=== PATIENT | female | born 1990 | race Caucasian/White ===

== ENCOUNTER 2016-05-29 02:09 | Emergency (ER) | payer MEDICARE, OTHER ==
[~2016-05-29] VITALS: Ht 160 cm; Wt 66.0 kg
[~2016-05-29 02:09] MED LIST: BACT800T5 PO; CEPH500T PO; CLIN1CAP5 PO
[2016-05-29 02:15] VITALS: BP 131/96; PULSE 97; RESP 16; TEMP 97.9; O2SAT 97
[2016-05-29] MEDS ORDERED: LIDOCAINE HCL 1% PF 30 ML VIAL INFIL ONE (02:30)
[2016-05-29] MEDS ORDERED: CLINDAMYCIN INJ 900 MG in SODIUM CHLORIDE 0.9% INJ 100 ML IV ONE (02:30)
[2016-05-29] MEDS ORDERED: SODIUM CHLOR 0.9% 1000 ML INJ 1,000 ML IV ONE (02:30)
[2016-05-29] MEDS ORDERED: METR500T10 PO (02:33)
--- NOTE | 2016-05-29 02:36 | PD ---
HPI Chief Complaint: Skin Problem Time Seen by Provider: 02:27 Travel History International Travel<30 days: No Contact w/Intl Traveler<30days: No Traveled to known affect area: No History of Present Illness HPI 25-year-old female presents to the emergency department by private transportation for evaluation of redness and possible abscess to the right medial thigh. Patient is noted symptoms with worsening since yesterday. Patient has noted some spontaneous drainage from the abscess site. Patient's had fever 100F reportedly. Patient states she had similar episode proximal 3 year ago which time she had outpatient I&D of the abscess but didn't require hospitalization. Patient states she is presenting early to try to avoid this. Patient also has history of epilepsy and is not taking any medications for this as she states she has been refractory to multiple medications but does have a service dog for her epilepsy. Patient is not diabetic and does not take immunosuppressive agents by history. Pain is moderate to severe. PFSH Past Medical History Narrative Medical Anxiety depression epilepsy MRSA infection recurrent UTI IUD alcohol use tobacco use substance use nursing notes reviewed Asthma: No Anxiety: Yes Depression: Yes Heart Rhythm Problems: No Cancer: No Cardiovascular Problems: No High Cholesterol: No COPD: No Cerebrovascular Accident: No Diabetes: No Diminished Hearing: No Endocrine: No Gastrointestinal Disorders: No GERD: No Genitourinary: Yes (frequent uti) Headaches: No Hiatal Hernia: No Immune Disorder: No Implanted Vascular Access Dvce: No Insomnia: Yes Musculoskeletal: No Neurologic: Yes (EPILEPSY x 8yrs Dr Dixon) Psychiatric: Yes Reproductive: No Respiratory: No Immunizations Current: Yes Migraines: No Renal Failure: No Seizures: Yes (last sz 3 days ago grand mal) Sleep Apnea: No Ulcer: No LMP: 05/29/16 Menopausal: No : 0 Past Surgical History Body Medical Devices: IUD Ear Surgery: No Endocrine Surgery: No Eye Surgery: No Oral Surgery: No Other Surgery: No (HEMORROID RUBBER BANDING 1 OF 9 09/06/13) Social History Alcohol Use: Yes (SOCIAL) Tobacco Use: Yes (1 PPD) Substance Use: Yes (marijawauna) Allergies-Medications (Allergen,Severity, Reaction): Coded Allergies: *MDRO Multi-Drug Resistant Organism (Verified Adverse Reaction, Unknown, ) MRSA (abdomen-11/2015) Reported Meds & Prescriptions Reported Meds & Active Scripts Active Reported Metronidazole 500 Mg Tab 500 Mg PO BID Review of Systems Except as stated in HPI: all other systems reviewed are Neg Physical Exam Narrative GENERAL: Well-developed well-nourished female in no acute distress no respiratory distress SKIN: Warm and dry. HEAD: Normocephalic. EYES: No scleral icterus. No injection or drainage. NECK: Supple, trachea midline. No JVD or lymphadenopathy. CARDIOVASCULAR: Regular rate and rhythm without murmurs, gallops, or rubs. RESPIRATORY: Breath sounds equal bilaterally. No accessory muscle use. GASTROINTESTINAL: Abdomen soft, non-tender, nondistended. MUSCULOSKELETAL: No cyanosis, or edema. Attention right proximal medial thigh area of induration 12 cm x 12 cm with central induration with pointing and fluctuance 5 cm x 5 cm tender to palpation with associated erythema and increased warmth BACK: Nontender without obvious deformity. No CVA tenderness. Data Data Last Documented VS Vital Signs Date Time Temp Pulse Resp B/P Pulse Ox O2 Delivery O2 Flow Rate FiO2 05/29/16 02:50 18 05/29/16 02:15 97.9 97 131/96 97 Room Air Orders Basic Metabolic Panel (Bmp) (05/29/16 02:27) Complete Blood Count With Diff (05/29/16 02:27) Blood Culture (05/29/16 02:27) Wound Culture And Gram Stain (05/29/16 02:27) Iv Access Insert/Monitor (05/29/16 02:27) Clindamycin Inj (Cleocin Inj) (05/29/16 02:30) Sodium Chlor 0.9% 1000 Ml Inj (Ns 1000 M (05/29/16 02:30) Lidocaine Pf 1% Inj (Xylocaine-Mpf 1% In (05/29/16 02:30) Ketorolac Inj (Toradol Inj) (05/29/16 03:30) Labs Laboratory Tests Test 05/29/16 02:30 White Blood Count 14.0 TH/MM3 Red Blood Count 4.25 MIL/MM3 Hemoglobin 13.2 GM/DL Hematocrit 38.0 % Mean Corpuscular Volume 89.3 FL Mean Corpuscular Hemoglobin 31.1 PG Mean Corpuscular Hemoglobin 34.8 % Concent Red Cell Distribution Width 12.4 % Platelet Count 276 TH/MM3 Mean Platelet Volume 7.9 FL Neutrophils (%) (Auto) 69.4 % Lymphocytes (%) (Auto) 22.8 % Monocytes (%) (Auto) 5.1 % Eosinophils (%) (Auto) 0.9 % Basophils (%) (Auto) 1.8 % Neutrophils # (Auto) 9.7 TH/MM3 Lymphocytes # (Auto) 3.2 TH/MM3 Monocytes # (Auto) 0.7 TH/MM3 Eosinophils # (Auto) 0.1 TH/MM3 Basophils # (Auto) 0.3 TH/MM3 CBC Comment DIFF FINAL Differential Comment Sodium Level 142 MEQ/L Potassium Level 3.7 MEQ/L Chloride Level 110 MEQ/L Carbon Dioxide Level 22.4 MEQ/L Anion Gap 10 MEQ/L Blood Urea Nitrogen 19 MG/DL Creatinine 0.83 MG/DL Estimat Glomerular Filtration 82 ML/MIN Rate Random Glucose 102 MG/DL Calcium Level 8.3 MG/DL [facility] Medical Decision Making Medical Screen Exam Complete: Yes Emergency Medical Condition: Yes Medical Record Reviewed: Yes Interpretation(s) Laboratory Tests Test 05/29/16 02:30 White Blood Count 14.0 TH/MM3 Red Blood Count 4.25 MIL/MM3 Hemoglobin 13.2 GM/DL Hematocrit 38.0 % Mean Corpuscular Volume 89.3 FL Mean Corpuscular Hemoglobin 31.1 PG Mean Corpuscular Hemoglobin 34.8 % Concent Red Cell Distribution Width 12.4 % Platelet Count 276 TH/MM3 Mean Platelet Volume 7.9 FL Neutrophils (%) (Auto) 69.4 % Lymphocytes (%) (Auto) 22.8 % Monocytes (%) (Auto) 5.1 % Eosinophils (%) (Auto) 0.9 % Basophils (%) (Auto) 1.8 % Neutrophils # (Auto) 9.7 TH/MM3 Lymphocytes # (Auto) 3.2 TH/MM3 Monocytes # (Auto) 0.7 TH/MM3 Eosinophils # (Auto) 0.1 TH/MM3 Basophils # (Auto) 0.3 TH/MM3 CBC Comment DIFF FINAL Differential Comment Sodium Level 142 MEQ/L Potassium Level 3.7 MEQ/L Chloride Level 110 MEQ/L Carbon Dioxide Level 22.4 MEQ/L Anion Gap 10 MEQ/L Blood Urea Nitrogen 19 MG/DL Creatinine 0.83 MG/DL Estimat Glomerular Filtration 82 ML/MIN Rate Random Glucose 102 MG/DL Calcium Level 8.3 MG/DL Differential Diagnosis cellulitis, abscess, sirs, sepsis Narrative Course IV access obtained specimens collected and sent for resulting; I&D discussed with patient with which she is agreeable after extensive discussion of procedure risk and benefit patient gives verbal consent to proceed Patient administered clindamycin 900 mg IV Patient administered Toradol 30 mg IV Incision and drainage only revealed a small amount of bloody with scant pus on I &D site was irrigated and specimen was collected but minimal purulent material collection sterile dressing was applied patient tolerated well will recommend recheck in 24 hours unless patient is doing extremely well or to return before 24 hours if any fever should develop. White count is 14,000 but no left shift by automated differential. Mild dehydration by metabolic panel. Procedures Procedure Narrative After the risks and benefits were discussed the following procedure was performed: INCISION AND DRAINAGE OF ABSCESS: The area was prepped and was sterilely draped. A subcutaneous wheal of 1 % Xylocaine with a total number 2 mL was used to anesthetize the area. The area was properly anesthetized. A number 11 scalpel was used to make a 1.5 -cm incision across the area of the abscess. Cultures were obtained. The abscess was drained of minimal seropurulent material an irrigated with normal saline. Quarter inch iodoform packing was placed in the wound. Sterile dressing applied. Patient advised to have packing removed in two days. Diagnosis Primary Impression: Cellulitis of groin Additional Impressions: Abscess Encounter for drainage of abscess Referrals: Primary Care Physician 2 days Patient Instructions: General Instructions Additional Instructions: Return to the emergency department in 2 days for packing removal; return before if fever pain redness swelling or any worsening or change in condition Increase fluid hydration Monitor temperature every 4 hours with thermometer and administer acetaminophen/ Tylenol every 4 hours for fever 100.4F or greater and/or ibuprofen/Advil/ Motrin 600 mg as often as every 6 hours as needed for fever 100.4F or greater or for pain associated with inflammation May apply moist heat intermittently for first 12-24 hours Elevated extremity Follow-up with primary care provider Med/Other Pt SpecificInfo: Prescription(s) given Scripts Hydrocodone-Acetaminophen (Lortab)5-325 Mg Tab1 Tab PO Q6H PRN (PAIN) #12 TAB Ref 0 Prov:Elena Farmer MD 05/29/16 Clindamycin 150 Mg [id number] Mg PO Q6H 7 Days Ref 0 Prov:Elena Farmer MD 05/29/16 Disposition: 01 DISCHARGE HOME Condition: Stable Elena Farmer MD May 29, 2016 02:35
[2016-05-29 02:51] LABS: AUTOMATED NEUTROPHIL # 9.7 TH/MM3 (1.8-7.7); BASOPHIL # 0.3 TH/MM3 (0-0.2); BASOPHIL % 1.8 % (0.0-2.0); EOSINOPHIL # 0.1 TH/MM3 (0-0.4); EOSINOPHIL % 0.9 % (0.0-4.0); LYMPH % 22.8 % (9.0-44.0); LYMPHOCYTE # 3.2 TH/MM3 (1.0-4.8); MEAN CELL VOLUME 89.3 FL (80.0-100.0); MEAN CORPUSCULAR HEMOGLOBIN 31.1 PG (27.0-34.0); MEAN CORPUSCULAR HGB CONC 34.8 % (32.0-36.0); MONO % 5.1 % (0.0-8.0); NEUT % 69.4 % (16.0-70.0); PLATELET COUNT 276 TH/MM3 (150-450); RED BLOOD COUNT 4.25 MIL/MM3 (4.00-5.30); RED CELL DISTRIBUTION WIDTH 12.4 % (11.6-17.2)
[2016-05-29 02:54] LABS: HEMO FLAGS DIFF FINAL
[2016-05-29 03:02] LABS: POTASSIUM 3.7 MEQ/L (3.5-5.1)
[2016-05-29 03:05] LABS: BICARBONATE 22.4 MEQ/L (21.0-32.0)
[2016-05-29] MEDS ORDERED: KETOROLAC TROMETHAMINE 30 MG/ML (IVP) VIAL IV PUSH ONE (03:30)
[2016-05-29 03:40] VITALS: BP 124/83; PULSE 87; RESP 18; TEMP 98.6; O2SAT 97
[2016-05-29] MEDS ORDERED: HYDR-3533 PO (03:43)
[2016-05-29] MEDS ORDERED: CLIN1CAP5 PO (03:43)
[2016-05-29 04:43] VITALS: BP 118/66; PULSE 89; RESP 18; O2SAT 99
== END 2016-05-29 04:55 | disposition home or self-care (01) ==
LOC: PHED 02:09
DX: L03.314 Cellulitis of groin (principal); L02.415 Cutaneous abscess of right lower limb; B95.62 Methicillin resistant Staphylococcus aureus infection as the cause of diseases classified elsewhere; F17.210 Nicotine dependence, cigarettes, uncomplicated; F12.90 Cannabis use, unspecified, uncomplicated
CPT/HCPCS: 10061; 80048; 85025; 86403; 87040; 87070; 87186; 96361; 96365; 96375; 99285; J1885; J7030

== ENCOUNTER 2016-05-30 23:28 | Inpatient (IN) | payer MEDICARE, OTHER ==
[~2016-05-30] VITALS: Ht 160 cm; Wt 67.9 kg
[~2016-05-30 23:28] MED LIST changes: -BACT800T5 PO; -CEPH500T PO; +HYDR-3533 PO; +METR500T10 PO
[2016-05-30 23:37] VITALS: BP 146/95; PULSE 95; RESP 16; TEMP 99.2; O2SAT 100
[2016-05-31] VITALS (12 sets, daily range): BP systolic 116–146; BP diastolic 65–95; PULSE 56–98; RESP 13–31; TEMP 97.8–99.2; O2SAT 97–100
[2016-05-31] MEDS ORDERED: LIDOCAINE 1%/EPINEPHrine 1:100,000 SOLN 20 ML VIAL INFIL ONE (01:00)
[2016-05-31] MEDS ORDERED: LIDOCAINE 1%/EPINEPHrine 1:100,000 SOLN 30 ML VIAL INFIL ONE (01:15)
--- NOTE | 2016-05-31 01:40 | PD ---
HPI Chief Complaint: Skin Problem Time Seen by Provider: 00:52 Travel History International Travel<30 days: No Contact w/Intl Traveler<30days: No Traveled to known affect area: No History of Present Illness HPI The patient is a 25-year-old female that was here 2 days ago for an infection in her right groin. It was incised and drained and some pus apparently was recovered. Culture of this area revealed coagulase positive staph but no sensitivity has been done yet. The area of redness/cellulitis has expanded approximately 4 times in area now and is involving most of the anterior-medial aspect of the thigh. She has taken her temperature at home and it has been running 99. She has been taking ibuprofen regularly for the pain. She does have a history of seizures unresponsive to any medication. She gets about 1 seizure weekly. Her last tetanus shot was 3 years ago. PFSH Past Medical History Asthma: No Anxiety: Yes Depression: Yes Heart Rhythm Problems: No Cancer: No Cardiovascular Problems: No High Cholesterol: No COPD: No Cerebrovascular Accident: No Diabetes: No Diminished Hearing: No Endocrine: No Gastrointestinal Disorders: No GERD: No Genitourinary: Yes (FREQUENT UTI) Headaches: No Hiatal Hernia: No Immune Disorder: No Implanted Vascular Access Dvce: No Insomnia: Yes Musculoskeletal: No Neurologic: Yes (EPILEPSY ) Psychiatric: Yes Reproductive: No Respiratory: No Immunizations Current: Yes Migraines: No Renal Failure: No Seizures: Yes (EPILEPSY) Sleep Apnea: No Ulcer: No Tetanus Vaccination: < 5 Years Influenza Vaccination: No ?: Not LMP: NOW Menopausal: No : 0 Past Surgical History Body Medical Devices: IUD Ear Surgery: No Endocrine Surgery: No Eye Surgery: No Oral Surgery: No Social History Alcohol Use: Yes (SOCIAL) Tobacco Use: Yes (1 PPD) Substance Use: Yes (marijawauna) Allergies-Medications (Allergen,Severity, Reaction): Coded Allergies: *MDRO Multi-Drug Resistant Organism (Verified Adverse Reaction, Unknown, ) MRSA (abdomen-11/2015) Reported Meds & Prescriptions Reported Meds & Active Scripts Active Lortab (Hydrocodone-Acetaminophen) 5-325 Mg Tab 1 Tab PO Q6H PRN Clindamycin (Clindamycin HCl) 150 Mg Cap 300 Mg PO Q6H 7 Days Review of Systems Except as stated in HPI: all other systems reviewed are Neg Physical Exam Narrative GENERAL: The patient is alert, oriented 3 in moderate apparent distress with her right thigh pain in the area of cellulitis. Her vital signs show temperature 99.2, pulse 95 and blood pressure 146/95. SKIN: Warm and dry. There is an area of cellulitis 30 cm x 20 cm. There is an indurated area about 2 x 3 cm located inferiorly to the inguinal ligament and centered about 3 cm below the inguinal ligament. HEAD: Atraumatic. Normocephalic. EYES: Pupils equal and round. No scleral icterus. No injection or drainage. ENT: No nasal bleeding or discharge. Mucous membranes pink and moist. NECK: Trachea midline. No JVD. CARDIOVASCULAR: Regular rate and rhythm. No murmur appreciated. RESPIRATORY: No accessory muscle use. Clear to auscultation. Breath sounds equal bilaterally. GASTROINTESTINAL: Abdomen soft, non-tender, nondistended. Hepatic and splenic margins not palpable. MUSCULOSKELETAL: No obvious deformities. No clubbing. No cyanosis. No edema. NEUROLOGICAL: Awake and alert. No obvious cranial nerve deficits. Motor grossly within normal limits. Normal speech. PSYCHIATRIC: Appropriate mood and affect; insight and judgment normal. Data Data Last Documented VS Vital Signs Date Time Temp Pulse Resp B/P Pulse Ox O2 Delivery O2 Flow Rate FiO2 05/31/16 01:45 77 18 127/70 100 Room Air 05/31/16 00:39 99.2 Orders Wound Care (05/31/16 00:57) Lidocai-Epi 1%-1:100,000 Inj (Xylocaine- (05/31/16 01:15) Complete Blood Count With Diff (05/31/16 01:51) Comprehensive Metabolic Panel (05/31/16 01:51) Vancomycin Consult Pharmacy (Vancomycin (05/31/16 02:00) Admit To Inpatient (05/31/16 ) Vital Signs (Adult) Q4H (05/31/16 01:53) Activity Oob Ad Ann Marie (05/31/16 01:53) Diet Regular Basic (05/31/16 Breakfast) Sodium Chlor 0.9% 1000 Ml Inj (Ns 1000 M (05/31/16 01:53) Sodium Chloride 0.9% Flush (Ns Flush) (05/31/16 02:00) Sodium Chloride 0.9% Flush (Ns Flush) (05/31/16 09:00) Ondansetron Inj (Zofran Inj) (05/31/16 02:00) Bisacodyl Supp (Dulcolax Supp) (05/31/16 02:00) Comprehensive Metabolic Panel (06/01/16 06:00) Complete Blood Count With Diff (06/01/16 06:00) Scd Bilateral/Knee High ISMA.BID (05/31/16 01:53) [place] Bilateral/Knee High ISMA.QSHIFT (05/31/16 01:53) Acetaminophen (Tylenol) (05/31/16 02:00) Acetamin-Hydrocod 325-5 Mg ([place] 5-325 (05/31/16 02:00) Morphine Inj (Morphine Inj) (05/31/16 02:00) Inpatient Certification (05/31/16 ) Vancomycin Inj (Vancomycin Inj) (05/31/16 02:00) [facility] Medical Decision Making Medical Screen Exam Complete: Yes Emergency Medical Condition: Yes Medical Record Reviewed: Yes Differential Diagnosis Cellulitis with failed outpatient therapy, abscess not properly draining, resistant organism with cellulitis Narrative Course The patient has cellulitis with failed outpatient therapy. Plan: Patient be admitted for IV vancomycin. Physician Communication Physician Communication I discussed the patient with Dr. Buitrago. The patient will be admitted to her here at [place]. Diagnosis Primary Impression: Cellulitis of groin Additional Impression: Failure of outpatient treatment Admitting Information Admitting Physician Requests: Carlos Henson MD May 31, 2016 01:40
[2016-05-31] MEDS ORDERED: ONDANSETRON HCL 4 MG/2 ML VIAL IVP PRN (02:00)
[2016-05-31] MEDS ORDERED: BISACODYL 10 MG SUPP PR PRN (02:00)
[2016-05-31] MEDS ORDERED: ACETAMINOPHEN 325 MG TAB PO PRN (02:00)
[2016-05-31] MEDS ORDERED: VANCOMYCIN INJ 1,250 MG in SODIUM CHLOR 0.9% 250 ML INJ 250 ML IV ONE (02:00)
[2016-05-31] MEDS ORDERED: SODIUM CHLORIDE 0.9% FLUSH 5 ML FLUSH FLUSH PRN (02:00)
[2016-05-31] MEDS ORDERED: Vancomycin Consult Pharmacy 1 EA OTHER SCH (02:00)
[2016-05-31] MEDS ORDERED: MORPHINE SULFATE 4 MG/ML INJ IV PRN (02:00)
[2016-05-31 02:09] LABS: BASOPHIL # 0.2 TH/MM3 (0-0.2); BASOPHIL % 2.3 % (0.0-2.0); EOSINOPHIL # 0.2 TH/MM3 (0-0.4); EOSINOPHIL % 1.6 % (0.0-4.0); HEMATOCRIT 38.6 % (35.0-46.0); LYMPH % 36.6 % (9.0-44.0); LYMPHOCYTE # 3.9 TH/MM3 (1.0-4.8); MEAN CELL VOLUME 88.1 FL (80.0-100.0); MEAN CORPUSCULAR HEMOGLOBIN 30.8 PG (27.0-34.0); MONO % 2.6 % (0.0-8.0); NEUT % 56.9 % (16.0-70.0); PLATELET COUNT 255 TH/MM3 (150-450); RED BLOOD COUNT 4.39 MIL/MM3 (4.00-5.30); RED CELL DISTRIBUTION WIDTH 11.6 % (11.6-17.2); WHITE BLOOD COUNT 10.6 TH/MM3 (4.0-11.0)
[2016-05-31 02:12] LABS: HEMO FLAGS DIFF FINAL
[2016-05-31 02:15] LABS: CHLORIDE 107 MEQ/L (98-107); POTASSIUM 3.5 MEQ/L (3.5-5.1); SODIUM (NA) 141 MEQ/L (136-145)
[2016-05-31] MEDS ORDERED: MORPHINE SULFATE 8 MG/ML INJ IV PUSH ONE (02:15)
[2016-05-31 02:19] LABS: ANION GAP 8 MEQ/L (5-15); BICARBONATE 26.3 MEQ/L (21.0-32.0); BLOOD UREA NITROGEN 11 MG/DL (7-18)
[2016-05-31] MEDS: SODIUM CHLOR 0.9% 1000 ML INJ 1,000 ML IV SCH ×3 (02:19→23:29)
[2016-05-31 02:22] LABS: ALT (GPT) 16 U/L (10-53); AST (GOT) 14 U/L (15-37); GLOMERULAR FILTRATION RATE 86 ML/MIN (>89)
[2016-05-31 02:24] LABS: TOTAL BILIRUBIN ADULT 0.3 MG/DL (0.2-1.0)
[2016-05-31 02:25] LABS: ALKALINE PHOSPHATASE 57 U/L (45-117)
[2016-05-31] MEDS: NICOTINE 21 MG/24 HR PATCH TD SCH ×2 (03:10→11:36)
[2016-05-31] MEDS: ACETAMINOPHEN/HYDROcodone 325 MG/5 MG TAB PO PRN ×5 (04:20→23:28)
--- NOTE | 2016-05-31 08:08 | HHI.HP ---
[facility] Primary Care Physician Ysa Ku MD Admission Diagnosis cellulitis right thigh, failed outpatient therapy Diagnoses: (1) Cellulitis of groin Chief Complaint: Right groin redness Travel History International Travel<30 Days: No Contact w/Intl Traveler <30 Da: No Traveled to Known Affected Are: No History of Present Illness 25-year-old female with known history of seizure disorder who presented to hospital because of increased redness around drained abscess. Patient came to emergency department on 05/29/16 in which she was evaluated by Dr. Farmer. At that time patient had a abscess which incision and drainage was performed with a small amount of bloody and scant pus. Culture was sent off and now has MRSA. Patient was discharged home with Lortab and clindamycin. 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 Started taking antibiotics, however she didn't think that it was improving so she came back to the hospital the next day. Patient was evaluated by Dr. Rangel. Also tried to repeat incision and drainage and was unsuccessful in expressing any exudates. According to the ER physician the patient failed outpatient management with oral antibiotics and recommended patient be admitted for IV antibiotics. The patient indicates that she has had fever at home. However, she indicates is only 99 and she was on Motrin. She states that the erythema was worsening. Has not had any copious drainage. According to nursing staff, patient had an episode last night with possible seizure. Patient does have history seizures in which she has had workups done at [facility]. She states that despite all workups they indicate that she is resistant to medications. Nursing staff indicates that after the patient's family had left. The nurse heard a thump in the room and went in and found the patient lying on the floor. According documentation at approximate 439 this morning the patient had assessment performed and she was alert and orientated answer questions appropriately. However simply after that is when she was found on the floor. Both the bed rails were up. Patient was found on the floor without any loss of bowel or bladder control. The patient states that she has post ictal, however 441 this morning after supposed seizure patient was alert and orientated and answering questions appropriately. No seizure documentation in the nursing notes. The patient gives additional information that she does not want to take any further seizure medications at this time as they all have given her side effects and none of them have been effective. She states that she was offered a temporal lobectomy for her seizures at [facility] at does not want to proceed with that at this time. She does not drive because of the seizures. She states typically she has a seizure once every 5-6 days. Review of Systems Constitutional: COMPLAINS OF: Fever, DENIES: Diaphoretic episodes, Fatigue, Weight gain, Weight loss, Chills, Dizziness, Change in appetite, Night Sweats Eyes: DENIES: Blurred vision, Diplopia, Eye inflammation, Eye pain, Vision loss , Double Vision Ears, nose, mouth, throat: DENIES: Hearing loss, Nasal discharge, Throat pain, Ear Pain, Running Nose, Sinus Pain Respiratory: DENIES: Apneas, Cough, Snoring, Wheezing, Hemoptysis, Sputum production, Shortness of breath Cardiovascular: DENIES: Chest pain, Palpitations, Syncope, Dyspnea on Exertion , Lower Extremity Edema, Orthopnea Gastrointestinal: DENIES: Abdominal pain, Black stools, Bloody stools, Constipation, Diarrhea, Nausea, Vomiting, Difficulty Swallowing, Anorexia Integumentary: COMPLAINS OF: Abnormal pigmentation Neurologic: COMPLAINS OF: Seizures, DENIES: Abnormal gait, Headache, Localized weakness, Paresthesias, Speech Problems, Tremor, Poor Balance Psychiatric: DENIES: Anxiety, Confusion, Mood changes, Depression Past Family Social History Past Medical History Epilepsy, supposedly resistant to medications Past Surgical History No previous surgeries Reported Medications Reported Meds & Active Scripts Active Lortab (Hydrocodone-Acetaminophen) 5-325 Mg Tab 1 Tab PO Q6H PRN Clindamycin (Clindamycin HCl) 150 Mg Cap 300 Mg PO Q6H 7 Days Allergies: Coded Allergies: *MDRO Multi-Drug Resistant Organism (Verified Adverse Reaction, Unknown, ) MRSA (abdomen-11/2015) Family History Reviewed and unremarkable Social History Patient does smoke one pack of cigarettes a day since she was 10 years old. She does smoke marijuana at least every other day. She drinks alcohol weekly approximately a 6 pack. She denies any other illicit drugs Physical Exam Vital Signs Vital Signs Date Time Temp Pulse Resp B/P Pulse Ox O2 Delivery O2 Flow Rate FiO2 05/31/16 07:15 65 16 05/31/16 05:37 60 18 120/67 98 Room Air 05/31/16 05:37 60 18 05/31/16 05:18 18 05/31/16 04:41 68 18 05/31/16 04:16 98 18 143/80 97 Room Air 05/31/16 02:44 78 18 05/31/16 02:44 78 18 136/76 98 Room Air 05/31/16 02:35 18 05/31/16 01:45 77 18 127/70 100 Room Air 05/31/16 00:44 95 18 05/31/16 00:39 99.2 95 18 146/95 100 05/30/16 23:37 99.2 95 16 146/95 100 Physical Exam GENERAL: Well-developed, well-nourished, in no acute distress. alert and orientated HEENT: Head is normocephalic without any lesions or masses noted. Facial features are symmetric. Eyes: Pupils equal round reactive to light. Extraocular muscles are intact. Conjunctivae were clear. Oropharyngeal: Pharynx without any erythema edema. Tongue is midline without deviation. Buccal mucosa is moist without any masses or lesions NECK: Supple without any masses. Trachea midline no deviation. No JVD, no bruits are appreciated CARDIAC: Regular rhythm, regular rate. S1/S2 are heard. No murmurs gallops or rubs. LUNGS: Clear to auscultation bilaterally. No wheeze, rhonchi or rales. No use of accessory muscles on inspiration or expiration. ABDOMEN: Soft, nontender. Nondistended. Bowel sounds heard in all 4 quadrants. No organomegaly or masses. Negative rebound, negative guarding EXTREMITIES: No edema, pulses are equal bilaterally. No cyanosis or clubbing NEUROLOGY: Mood and affect appear appropriate. Cranial nerves II through XII grossly intact. Muscle strength 5/5 in upper and lower extremities bilaterally. Deep tendon reflexes are 2+ in upper and lower extremities bilaterally. RIGHT GROIN: Patient does have a 1.5 cm incision noted without any significant exudative drainage. There is granulation noted beneath the incision measuring approximately 2.5 cm. There is mild erythema noted around the area, however it is in linear manning as if tape had been placed and possible reaction to that. There is redness on her inner thigh going down to her knee, however that is where a cold pack had been placed through the night. I could not appreciate any inguinal without adenopathy Laboratory Laboratory Tests Test 05/31/16 01:45 White Blood Count 10.6 Red Blood Count 4.39 Hemoglobin 13.5 Hematocrit 38.6 Mean Corpuscular Volume 88.1 Mean Corpuscular Hemoglobin 30.8 Mean Corpuscular Hemoglobin 35.0 Concent Red Cell Distribution Width 11.6 Platelet Count 255 Mean Platelet Volume 8.3 Neutrophils (%) (Auto) 56.9 Lymphocytes (%) (Auto) 36.6 Monocytes (%) (Auto) 2.6 Eosinophils (%) (Auto) 1.6 Basophils (%) (Auto) 2.3 Neutrophils # (Auto) 6.0 Lymphocytes # (Auto) 3.9 Monocytes # (Auto) 0.3 Eosinophils # (Auto) 0.2 Basophils # (Auto) 0.2 CBC Comment DIFF FINAL Differential Comment Sodium Level 141 Potassium Level 3.5 Chloride Level 107 Carbon Dioxide Level 26.3 Anion Gap 8 Blood Urea Nitrogen 11 Creatinine 0.80 Estimat Glomerular Filtration 86 Rate Random Glucose 90 Calcium Level 8.8 Total Bilirubin 0.3 Aspartate Amino Transf 14 (AST/SGOT) Alanine Aminotransferase 16 (ALT/SGPT) Alkaline Phosphatase 57 Total Protein 7.4 Albumin 3.7 Result Diagram: 05/31/1614405/31/16144 Assessment and Plan Assessment and Plan Right groin abscess with cellulitis Culture growing MRSA - and is sensitive to clindamycin Patient on vancomycin at this time Continue monitor and if continues to improve and resume clindamycin Obtain ultrasound to evaluate for any fluid collection - on clinical exam the abscess does not appear amenable to drainage at this time and is very small. Epilepsy -Possible seizure this morning. This was unwitnessed by nursing staff, no loss of bowel or bladder control, no tongue lesion. Patient indicates that she is resistant to medications per [facility] and [facility]. Further she does not want to take any seizure medications because of side effects and because of ineffectiveness. She is been offered temporal lobectomy at [facility] but is not ready to pursue that at this time. -Will use Ativan 1 mg IV as needed for seizures. Patient does not drive and was encouraged to continue abstaining from driving. DVT prevention Sequential compression devices Written by Edward Rangel PA-C, acting as scribe for Dr. Osman on 05/31/16 at Time. The documentation accurately reflects the work and decisions performed face-to- face by Dr. Osman on 05/31/16 at [Time]. Physician Certification 2 Midnight Certification Type: Admission for Inpatient Services Order for Inpatient Services The services are ordered in accordance with Medicare regulations or non- Medicare payer requirements, as applicable. In the case of services not specified as inpatient-only, they are appropriately provided as inpatient services in accordance with the 2-midnight benchmark. Estimated LOS (days): 2 days is the estimated time the patient will need to remain in the hospital, assuming treatment plan goals are met and no additional complications. Post-Hospital Plan: Not yet determined Edward Rangel May 31, 2016 08:08 Xochitl Osman MD May 31, 2016 15:14
--- NOTE | 2016-05-31 10:54 | RADHPO ---
EXAM DATE/TIME: 05/31/2016 14:48 [place] COMPARISON: CT ABDOMEN & PELVIS W CONTRAST, October 08, 2013, 12:27. INDICATIONS : Abscess. MEDICAL HISTORY : Methicillin-resistant Staphylococcus aureus. Epilepsy. SURGICAL HISTORY : Hemorrhoid banding. ENCOUNTER: Initial ACUITY: 2 days PAIN SCORE: 5/10 LOCATION: Right leg. AREA EVALUATED: Right groin. FINDINGS: Right inguinal region was evaluated with grayscale and Doppler imaging. There is edema throughout the subcutaneous tissues and the tissues are hyperemic. There is a questionable more focal hypoechoic ar ea estimated to measure approximately 1 cm in size that may extend to the skin surface. CONCLUSION: Edematous and hyperemic tissue in the area of clinical interest in the right inguinal region. There i s a subtle more localized hypoechoic area in the subcutaneous tissues measuring approximately 1 cm th at may represent a developing complex fluid collection or developing abscess. Ciro Pozo MD on May 31, 2016 at 10:50 Board Certified Radiologist. This report was verified electronically.
[2016-05-31] MEDS: SODIUM CHLORIDE 0.9% FLUSH 5 ML FLUSH FLUSH SCH ×2 (11:36→19:40)
[2016-05-31] MEDS: VANCOMYCIN 1,000 MG/NS 250 ML IV SCH ×2 (13:33)
[2016-05-31] MEDS ORDERED: VANCOMYCIN INJ 1,000 MG in SODIUM CHLOR 0.9% 250 ML INJ 250 ML IV SCH (14:00)
[2016-05-31] MEDS ORDERED: LORazepam 2 MG/ML VIAL IV PUSH PRN (15:15)
[2016-06-01] VITALS: BP 130/69; PULSE 74; RESP 24; TEMP 98.7; O2SAT 99
[2016-06-01] MEDS: VANCOMYCIN 1,000 MG/NS 250 ML IV SCH ×2 (02:27)
[2016-06-01 05:52] LABS: BASOPHIL # 0.1 TH/MM3 (0-0.2); BASOPHIL % 0.9 % (0.0-2.0); EOSINOPHIL # 0.2 TH/MM3 (0-0.4); EOSINOPHIL % 2.3 % (0.0-4.0); HEMATOCRIT 35.8 % (35.0-46.0); HEMO FLAGS DIFF FINAL; LYMPH % 50.6 % (9.0-44.0); LYMPHOCYTE # 3.4 TH/MM3 (1.0-4.8); MEAN CELL VOLUME 88.8 FL (80.0-100.0); MEAN CORPUSCULAR HEMOGLOBIN 30.6 PG (27.0-34.0); MEAN CORPUSCULAR HGB CONC 34.5 % (32.0-36.0); MONO % 3.8 % (0.0-8.0); NEUT % 42.4 % (16.0-70.0); PLATELET COUNT 271 TH/MM3 (150-450); RED BLOOD COUNT 4.03 MIL/MM3 (4.00-5.30)
[2016-06-01 05:59] VITALS: BP 104/62; PULSE 54; RESP 15; O2SAT 99
[2016-06-01 06:01] LABS: CHLORIDE 112 MEQ/L (98-107); POTASSIUM 3.8 MEQ/L (3.5-5.1); SODIUM (NA) 144 MEQ/L (136-145)
[2016-06-01 06:31] LABS: ALKALINE PHOSPHATASE 43 U/L (45-117); ALT (GPT) 14 U/L (10-53); ANION GAP 5 MEQ/L (5-15); AST (GOT) 8 U/L (15-37); BICARBONATE 26.6 MEQ/L (21.0-32.0); BLOOD UREA NITROGEN 10 MG/DL (7-18); GLOMERULAR FILTRATION RATE 107 ML/MIN (>89); TOTAL BILIRUBIN ADULT 0.4 MG/DL (0.2-1.0)
[2016-06-01 08:00] VITALS: BP 129/79; PULSE 58; RESP 16; TEMP 97.8; O2SAT 98
[2016-06-01 09:00] VITALS: PULSE 79
[2016-06-01] MEDS: NICOTINE 21 MG/24 HR PATCH TD SCH (10:01)
[2016-06-01] MEDS: SODIUM CHLOR 0.9% 1000 ML INJ 1,000 ML IV SCH (10:01)
[2016-06-01] MEDS: SODIUM CHLORIDE 0.9% FLUSH 5 ML FLUSH FLUSH SCH (10:02)
[2016-06-01] MEDS: ACETAMINOPHEN/HYDROcodone 325 MG/5 MG TAB PO PRN (10:16)
[2016-06-01 10:58] VITALS: PULSE 79
[2016-06-01 12:00] VITALS: BP 127/77; PULSE 58; RESP 16; TEMP 97; O2SAT 97
--- NOTE | 2016-06-01 13:00 | HHI.PR ---
Subjective Remarks Patient seen and examined today. Patient denies any new complaints. Patient is still concerned about a lump in her thigh. Patient continues to be afebrile. Objective Vitals Vital Signs Date Time Temp Pulse Resp B/P Pulse Ox O2 Delivery O2 Flow Rate FiO2 06/01/16 08:00 97.8 58 16 129/79 98 06/01/16 05:59 54 15 104/62 99 06/01/16 00:00 98.7 74 24 130/69 99 05/31/16 20:00 98.9 70 13 116/67 98 05/31/16 20:00 70 05/31/16 16:00 98.2 72 28 119/65 97 I/O 05/31/16 05/31/16 05/31/16 06/01/16 06/01/16 06/01/16 07:00 15:00 23:00 07:00 15:00 23:00 Intake Total 250 ml 1511 ml 840 ml 1003 ml Balance 250 ml 1511 ml 840 ml 1003 ml Intake Oral 720 ml 240 ml 240 ml IV Total 250 ml 791 ml 600 ml 763 ml # Voids 2 2 3 # Bowel Movements 0 0 0 Result Diagram: 06/01/16 0500 06/01/16 0500 Objective Remarks GENERAL: Well-developed, well-nourished, in no acute distress. alert and orientated HEENT: Head is normocephalic without any lesions or masses noted. Facial features are symmetric. Eyes: Extraocular muscles are intact. Conjunctivae were clear. NECK: Supple without any masses. Trachea midline no deviation. No JVD, CARDIAC: Regular rhythm, regular rate. S1/S2 are heard. No murmurs gallops or rubs. LUNGS: Clear to auscultation bilaterally. No wheeze, rhonchi or rales. No use of accessory muscles on inspiration or expiration. ABDOMEN: Soft, nontender. Nondistended. Bowel sounds heard in all 4 quadrants. No organomegaly or masses. Negative rebound, negative guarding EXTREMITIES: No edema, pulses are equal bilaterally. No cyanosis or clubbing NEUROLOGY: Mood and affect appear appropriate. Cranial nerves II through XII grossly intact. Moving all extremities. Speech is clear Urinary Catheter: No Vascular Central Line Catheter: No A/P Assessment and Plan Right groin abscess with cellulitis, improved Culture growing MRSA - and is sensitive to clindamycin Patient on vancomycin at this time Continue monitor and if continues to improve and resume clindamycin Ultrasound shows hyperemic tissue in the area of clinical interest with localized hypoechoic area of proximally 1 cm may represent complex fluid collection or developing abscess. Epilepsy -Possible seizure this morning. This was unwitnessed by nursing staff, no loss of bowel or bladder control, no tongue lesion. Patient indicates that she is resistant to medications per [facility] and [facility]. Further she does not want to take any seizure medications because of side effects and because of ineffectiveness. She is been offered temporal lobectomy at [facility] but is not ready to pursue that at this time. -Will use Ativan 1 mg IV as needed for seizures. Patient does not drive and was encouraged to continue abstaining from driving. DVT prevention Sequential compression devices Written by Edward Rangel PA-C, acting as scribe for Dr. Osman on 06/01/16 at 1305. The documentation accurately reflects the work and decisions performed face-to- face by Dr. Osman on 06/01/16 at 1305. Discharge Planning Discharge home in stable condition Activity: Ad janak. Diet: Regular diet Medications per medication reconciliation Follow-up primary medical doctor in one week Edward Rangel Jun 01, 2016 13:00
--- NOTE | 2016-06-01 13:01 | HHI.DCPOC ---
Discharge Care Plan Diagnosis: (1) Cellulitis of groin Goals to Promote Your Health * To prevent worsening of your condition and complications * To maintain your health at the optimal level Directions to Meet Your Goals Take your medications as prescribed Follow your dietary instruction Follow activity as directed Keep your appointments as scheduled Take your immunizations and boosters as scheduled If your symptoms worsen call your PCP, if no PCP go to Urgent Care Center or Emergency Room Smoking is Dangerous to Your Health. Avoid second hand smoke Call the 24-hour hour crisis hotline for domestic abuse at Edward Rangel Jun 01, 2016 13:01
[2016-06-01] MEDS ORDERED: PHARMACY ORDERED LAB XX ONE (13:45)
== END 2016-06-01 15:00 | disposition home or self-care (01) | DRG 603 ==
LOC: PHED 23:28 → PHEDA 05-31 02:13 → PHEDH 05-31 06:06 → PHICU 05-31 08:50 → PH3A 06-01 07:36
PROVIDERS: ADMIT Family Medicine; ATTEND Family Medicine
PROC: 0Y953ZZ Drainage of Right Inguinal Region, Percutaneous Approach (ICD-10-PCS; principal; 2016-05-29)
DX: L02.214 Cutaneous abscess of groin (principal); L03.115 Cellulitis of right lower limb; F32.9 Major depressive disorder, single episode, unspecified; L03.314 Cellulitis of groin; G40.909 Epilepsy, unspecified, not intractable, without status epilepticus; F41.9 Anxiety disorder, unspecified; G47.00 Insomnia, unspecified; F17.210 Nicotine dependence, cigarettes, uncomplicated; B95.62 Methicillin resistant Staphylococcus aureus infection as the cause of diseases classified elsewhere; F12.90 Cannabis use, unspecified, uncomplicated
CPT/HCPCS: 10061; 76882; 80048; 80053; 85025; 86403; 87040; 87070; 87186; 96361; 96365; 96375; 99284; J1885; J2270; J2405; J3370; J7030; J7050

== ENCOUNTER 2016-12-21 12:59 | Emergency (ER) | payer MEDICARE, OTHER ==
[~2016-12-21] VITALS: Ht 160 cm; Wt 61.9 kg
[~2016-12-21 12:59] MED LIST changes: -METR500T10 PO
[2016-12-21 13:27] VITALS: BP 139/76; PULSE 78; RESP 18; TEMP 99.3; O2SAT 99
[2016-12-21] MEDS ORDERED: DOXY100C PO (14:02)
[2016-12-21] MEDS ORDERED: BACT800T5 PO (14:02)
--- NOTE | 2016-12-21 14:06 | PD ---
HPI Chief Complaint: Bite or Sting Time Seen by Provider: 13:58 Travel History International Travel<30 days: No Contact w/Intl Traveler<30days: No Traveled to known affect area: No History of Present Illness HPI This is a 26-year-old female who presents today with redness and pain to her right forearm. The patient status started as a bug bite 5 days ago. She reports that it has gotten bigger and more red. She states that earlier it had some cold drainage from the area. There is no reported fevers, chills. She has had MRSA in the past. She reports her tetanus shot is up-to-date. There are no other complaints. PFSH Past Medical History Asthma: No Autoimmune Disease: No Anxiety: Yes Depression: Yes Heart Rhythm Problems: No Cancer: No Cardiovascular Problems: No High Cholesterol: No COPD: No Cerebrovascular Accident: No Diabetes: No Diminished Hearing: No Endocrine: No Gastrointestinal Disorders: No GERD: No Genitourinary: No Headaches: Yes Hiatal Hernia: No Immune Disorder: No Implanted Vascular Access Dvce: No Insomnia: Yes Musculoskeletal: No Neurologic: Yes Psychiatric: No Reproductive: No Respiratory: No Immunizations Current: Yes Migraines: No Renal Failure: No Seizures: Yes (SEIZURES SINCE 2007 - EPILEPSY) Sleep Apnea: No Thyroid Disease: No Ulcer: No ?: Not Menopausal: No : 0 Past Surgical History Body Medical Devices: IUD Ear Surgery: No Endocrine Surgery: No Eye Surgery: No Oral Surgery: No Social History Alcohol Use: Yes (SOCIAL) Tobacco Use: Yes (1 PPD) Substance Use: Yes (WEED) Allergies-Medications (Allergen,Severity, Reaction): Coded Allergies: *MDRO Multi-Drug Resistant Organism (Verified Adverse Reaction, Unknown, ) MRSA (abdomen-11/2015) & (leg-05/29/16) Reported Meds & Prescriptions Reported Meds & Active Scripts Active Doxycycline Hyclate 100 Mg Cap 100 Mg PO BID Bactrim DS (Sulfamethoxazole-Trimethoprim) 800-160 Mg Tab 1 Tab PO BID Review of Systems Except as stated in HPI: all other systems reviewed are Neg General / Constitutional: No: Fever, Chills Gastrointestinal: No: Nausea, Vomiting Skin: Positive Lesions (right forearm), Positive Other (right time-sized circular redness with central drainage to her right forearm.) Physical Exam Narrative GENERAL: Well-nourished, well-developed patient. SKIN: Focused skin assessment warm/dry. HEAD: Normocephalic/atraumatic EYES: No scleral icterus. No injection or drainage. NECK: Supple, trachea midline. No JVD or lymphadenopathy. MUSCULOSKELETAL: No cyanosis, or edema. On examination patient's right forearm , in the anatomical position there time shaped red circular area with a central crusting area on her medial forearm. There is no evidence of lymphangitis there is no evidence of fluctuant abscess noted. NEUROLOGICAL: Awake and alert. Cranial nerves II through XII intact. Motor grossly within normal limits. Five out of 5 muscle strength in all muscle groups. Normal speech. Data Data Last Documented VS Vital Signs Date Time Temp Pulse Resp B/P Pulse Ox O2 Delivery O2 Flow Rate FiO2 12/21/16 13:27 99.3 78 18 139/76 99 MDM Medical Decision Making Medical Screen Exam Complete: Yes Emergency Medical Condition: Yes Differential Diagnosis MRSA versus cellulitis versus allergic reaction Narrative Course 26-year-old female presents with right forearm redness and previous drainage. Patient has what appears to be an infected bug bite. She has had previous MRSA. She'll be treated with Bactrim and doxycycline. She'll be instructed to return of he develops any worsening redness swelling or increased size. Diagnosis Primary Impression: right forearm infected bug bite Additional Instructions: Return of worsening redness, fevers chills, increased size or pain. Scripts Doxycycline Hyclate 100 Mg [id number] Mg PO BID #20 CAP Ref 0 Prov:Eris Poe MD 12/21/16 Sulfamethoxazole-Trimethoprim (Bactrim DS)800-160 Mg Tab1 Tab PO BID #20 TAB Ref 0 Prov:Eris Poe MD 12/21/16 Disposition: 01 DISCHARGE HOME Condition: Stable Eris Poe MD Dec 21, 2016 14:06
== END 2016-12-21 14:13 | disposition home or self-care (01) ==
LOC: PHEFT 12:59
DX: S50.861A Insect bite (nonvenomous) of right forearm, initial encounter (principal); L08.9 Local infection of the skin and subcutaneous tissue, unspecified; W57.XXXA Bitten or stung by nonvenomous insect and other nonvenomous arthropods, initial encounter
CPT/HCPCS: 99284

== ENCOUNTER 2017-11-27 13:40 | Inpatient (IN) ==
[2017-11-27] MEDS ORDERED: Sod Chloride 0.9% Inj 1,000 ML IV.SIG ONE ×2 (14:20→15:31)
[2017-11-27 15:07] LABS: Baso % (Auto) 0.1 % (0.0-2.0); Hematocrit 39.6 % (35.0-46.0); Hemoglobin 13.3 gm/dL (11.6-15.3); Lymph # (Auto) 0.6 th/mm3 (1.0-4.8); Lymph % (Auto) 4.2 % (9.0-44.0); Mean Corpuscular HGB Conc 33.6 % (32.0-36.0); Mean Corpuscular Hemoglobin 31.1 pg (27.0-34.0); Mean Corpuscular Volume 92.5 fL (80.0-100.0); Mean Platelet Volume 8.7 fL (7.0-11.0); Mono # (Auto) 0.4 th/mm3 (0.0-0.9); Mono % (Auto) 3.3 % (0.0-8.0); Neut # (Auto) 12.4 th/mm3 (1.8-7.7); Neut % (Auto) 92.4 % (16.0-70.0); Platelet Count 239 th/mm3 (150-450); Red Blood Count 4.28 mil/mm3 (4.00-5.30); Red Cell Distribution Width 12.9 % (11.6-17.2); White Blood Count 13.5 th/mm3 (4.0-11.0)
[2017-11-27 15:21] LABS: Calcium 9.4 mg/dL (8.5-10.1); Carbon Dioxide 18.8 meq/L (21.0-32.0); Magnesium 2.6 mg/dL (1.5-2.5); Potassium 3.9 meq/L (3.5-5.1)
--- NOTE | 2017-11-27 15:35 | ED ---
HPI General Chief Complaint: Seizure Stated Complaint: Medical Time Seen by Provider: 11/27/17 14:07 Source: patient Mode of arrival: ambulatory Limitations: other (postictal state) History of Present Illness HPI Narrative: 27-year-old female, with history of intractable seizure disorder and grand mal seizures 10 years, with 4 seizures back to back today; her last seizure was 30 minutes ago. Her mom is with her at the bedside. The patient is in a postictal state and seems somewhat confused although she is alert and oriented 4. She does appear drowsy and her pupils are dilated. She is slow to answer some of the questions. Her mom is a good historian and is helping with the HPI. The patient is also answering questions. Patient took was weaned off Briviact, by her neurologist Dr. Dixon, and last took 50 mg dose on . Her baseline is having one grand mal seizure every 7-9 days. Her neurologist has tried multiple medications including Tegretol, Keppra, gabapentin, Lamictal, Dilantin, etc. with continued seizures. No known aggravating or relieving factors. Patient denies chest pain, shortness of breath, abdominal pain, nausea, vomiting, headache at this time. She has not taken any medications or try any treatments prior to arrival to alleviate her symptoms. Mom is taking her home to give her a dose of the Brivriact and Ativan , but she continued to have seizures so brought her to the ER. No known allergies. Neurologist Dr. Dixon. Primary care provider is Dr. Ku. History of grand mal seizures. Denies other significant past medical history. Has no other medical complaints. No other modifying factors or associated signs and symptoms. Related Data Home Medications Medication Instructions Recorded Confirmed brivaracetam [Briviact] 50 mg PO DAILY 11/27/17 11/27/17 Allergies Allergy/AdvReac Type Severity Reaction Status Date / Time *MDRO Multi-Drug Resistant AdvReac Unknown unknown Uncoded 11/27/17 13:56 Organism Review of Systems ROS Unobtainable All other systems reviewed negative except as stated in HPI [facility] Medical History Medical History Seizure (Acute) Social History Social History Substance History: No History of Abuse Second Hand Smoke Exposure: No Smoking Status: Former smoker Tobacco Type: Cigarettes How Often Do You Have a Drink Containing Alcohol: Monthly or less Recent Travel in [facility] within the Last 8 Weeks: No Recent Out of Country Travel within the Last 8 Weeks: No Immunization History Tetanus Immunization: <5 Years Hx Influenza Vaccine This Season: No Exam Narrative Exam Narrative: GENERAL: Well-nourished, well-developed female patient , in no acute distress SKIN: Warm and dry. HEAD: Atraumatic. Normocephalic. No facial droop noted. Tongue midline. Shoulder shrug equal. Finger to nose test normal. EYES: Pupils equal and round at 5 mm with brisk reaction. No scleral icterus. No injection or drainage. PERRLA. EOMI. ENT: Mucosa pink and moist. Airway patent. NECK: Trachea midline. No lymphadenopathy. CARDIOVASCULAR: Tachycardic rate and rhythm. No murmur appreciated. RESPIRATORY: No accessory muscle use. Breath sounds clear and equal bilaterally. GASTROINTESTINAL: Abdomen soft, non-tender, nondistended. Positive bowel sounds. No hepato-splenomegaly, or palpable masses. No guarding. MUSCULOSKELETAL: No obvious deformities. No clubbing. No cyanosis. No edema. NEUROLOGICAL: Awake and alert; appears lethargic. Slow to answer some questions. Oriented 4. No obvious cranial nerve deficits. Motor grossly within normal limits. Normal speech. No ataxia. No mid-line drift. No upper or lower extremity drift. Trim Machine Operator strength equal bilaterally. Sensory intact and equal bilaterally. Moves all extremities. Active plantar and dorsiflexion and strength equal bilaterally. 5/5 strength to all extremities. PSYCHIATRIC: Appropriate mood and affect; insight and judgment normal. Course Initial Documented Vital Signs Temperature 98.3 F 11/27/17 13:50 Pulse Rate 134 H 11/27/17 13:50 Respiratory Rate 22 11/27/17 13:50 Blood Pressure 147/80 H 11/27/17 13:50 Pulse Oximetry 96 11/27/17 13:50 Last Documented Vital Signs Temperature 97.8 F 11/28/17 04:00 Pulse Rate 62 11/28/17 04:00 Respiratory Rate 16 11/28/17 04:00 Blood Pressure 111/61 11/28/17 04:00 Pulse Oximetry 98 11/28/17 04:00 Medical Decision Making BISI Attestation BISI supervised visit: Yes Attestation: I was present with the advanced practitioner during the management of this patient. I discussed the case with the advanced practitioner and agree with the findings and plan as documented in their note except as noted below. 27yF presenting with seizures. The patient's mother states that she has a history of epilepsy, normally has generalized tonic-clonic seizures every 7-9 days, but has had her home dose of brivaracetam weaned down over the past few weeks due to side effects at full dose. The patient had 3 witnessed tonic- clonic seizures today which were witnessed by her friend, unclear how long they lasted for. Patient is unsure if she returned to baseline mental status between seizures. Complains of "aching pain all over my body". Well-appearing, looks fatigued NCAT, pupils 4 mm and reactive bilaterally, no apparent head or facial trauma Borderline tachy, regular Lungs clear to auscultation bilaterally Abdomen soft, non-tender in all quadrants No lower extremity edema Superficial abrasion to left anterior lower leg GCS 15, answers questions slowly but appropriately, appears mildly confused. Motor strength 5/5, no pronator drift or dysmetria, no nystagmus. Appropriate affect A/P: 27yF presenting with multiple breakthrough seizures IV fluids Labs, including lytes Ativan x 1 dose now, continue to monitor Patient's father bringing in medication from home (not on formulary here) Will discuss with neurology regarding resuming AEDs Patient found to have ELIZABETH (creat 1.46 up from 0.66 on previous visit), will add CK to rule out rhabdomyolysis. Patient will need to stay for IV hydration, recheck BUN/ creat, resume AEDs, further workup, and seizure precautions. MDM Narrative Medical decision making narrative: 27-year-old female with history of intractable seizure disorder and grand mal seizures presents with 4 seizures back to back. She was weaned off of her current seizure medication, Briviact, and last took the dose on . Her mom is at the bedside with her. Discussed the patient with Dr. Ordonez and she evaluated the patient and plan of care discussed. Orders entered. Patient on cardiopulmonary monitor. 1535: Call placed to Dr. Dixon, neurologist; neurologist not available on weekends; office hours are Wednesday through Wednesday and it instructed to leave a message and a call will be made back on the next business day. 1539: Call placed to on-call neurologist, Dr. Hughes. 1553: Complaining of headache and pain starting all over. Percocet 2.5 mg ordered. 1620: I spoke with Dr. Hughes, neurologist and patient will be admitted. Requested orders entered. Call placed to [facility] for admission. 1723: I spoke with Dr. Shipley; report given for patient admission. Differential Diagnosis Differential Diagnosis: Grand mal seizure, epilepsy, uncontrolled seizures, medical clearance Lab Data Result diagrams: 11/27/17 14:30 11/27/17 14:30 Lab Results 11/27/17 11/27/17 11/27/17 Range/Units 14:30 14:30 14:30 WBC 13.5 H (4.0-11.0) th/mm3 RBC 4.28 (4.00-5.30) mil/mm3 Hgb 13.3 (11.6-15.3) gm/dL Hct 39.6 (35.0-46.0) % MCV 92.5 (80.0-100.0) fL MCH 31.1 (27.0-34.0) pg MCHC 33.6 (32.0-36.0) % RDW 12.9 (11.6-17.2) % Plt Count 239 (150-450) th/mm3 MPV 8.7 (7.0-11.0) fL Neut % (Auto) 92.4 H (16.0-70.0) % Lymph % (Auto) 4.2 L (9.0-44.0) % Dukes % (Auto) 3.3 (0.0-8.0) % Eos % (Auto) 0.0 (0.0-4.0) % Baso % (Auto) 0.1 (0.0-2.0) % Neut # (Auto) 12.4 H (1.8-7.7) th/mm3 Lymph # (Auto) 0.6 L (1.0-4.8) th/mm3 Dukes # (Auto) 0.4 (0.0-0.9) th/mm3 Eos # (Auto) 0.0 (0.0-0.4) th/mm3 Baso # (Auto) 0.0 (0.0-0.2) th/mm3 WBC Differential . Differential Comment Auto diff final Sodium 142 (136-145) meq/L Potassium 3.9 (3.5-5.1) meq/L Chloride 110 H (98-107) meq/L Carbon Dioxide 18.8 L (21.0-32.0) meq/L Anion Gap 13 (5-15) meq/L BUN 18 (7-18) mg/dL Creatinine 1.46 H (0.50-1.00) mg/dL Estimated GFR 42 L (>89) mL/min Random Glucose 122 H (74-106) mg/dL Calcium 9.4 (8.5-10.1) mg/dL Magnesium 2.6 H (1.5-2.5) mg/dL Total Creatine Kinase 127 (26-192) U/L CK-MB (CK-2) 0.5 (0.5-3.6) ng/mL Imaging Data Radiologist's impression: Head MRI 11/27/17 16:30 CONCLUSION: 1. Negative noncontrast brain MRI. Discharge Plan Discharge Disposition Patient Disposition: 30 Still Patient Discharge Condition Condition: Stable Discharge Details Diagnosis: Intractable seizure disorder, Grand mal seizure Physicians Team ED Provider: Lotus Ordonez ED Midlevel Provider: Justina Estrada Primary Care Provider: Yas Ku Attending Provider: Marina Harris Other Providers: Ashwin Hughes Status ED Status: Left Department Discharge Information Discharge Date/Time: 11/27/17 18:51
[2017-11-27 16:16] LABS: Creatine Kinase 127 U/L (26-192)
[2017-11-27] MEDS ORDERED: Valproate Inj 500 MG in Sodium Chlor 0.9% Inj 100 ML IV.SIG SCH (16:30)
[2017-11-27] MEDS ORDERED: Lacosamide Inj 200 MG in Sodium Chlor 0.9% Inj 100 ML IV.SIG ONE (16:30)
[2017-11-27 16:31] LABS: Creatine Kinase MB 0.5 ng/mL (0.5-3.6)
[2017-11-27] MEDS ORDERED: Acetaminophen 325 MG Tablet PO PRN (17:35)
[2017-11-27] MEDS ORDERED: levETIRAcetam 1000mg/100mL Inj 100 ML IV.SIG ONE (17:35)
--- NOTE | 2017-11-27 18:20 | MR ---
EXAM DATE: 11/27/2017 6:10 PM EDT AGE/SEX: 27 years / Female INDICATIONS: Seizures. CLINICAL DATA: This is the patient's initial encounter. Patient reports that signs and symptoms have been present for 1 day and indicates a pain score of 0/10. MEDICAL/SURGICAL HISTORY: None. None. COMPARISON: No prior exams available for comparison. TECHNIQUE: Multiplanar, multisequence examination of the brain was performed without contrast. FINDINGS: The ventricular system is within normal limits. There is normal hodge-white differentiation. There is no acute hemorrhage, mass or evidence of infarction. There is no restricted diffusion present on the echoplanar weighted images. The posterior fossa and brainstem appear unremarkable. No extra-axial flu id collections are identified. The orbits and visualized portions of the sinuses are unremarkable. CONCLUSION: 1. Negative noncontrast brain MRI. Electronically signed by: Ad Tomlinson MD 11/27/2017 6:19 PM EDT
[2017-11-27] MEDS ORDERED: Naloxone Inj 0.4 MG/ML Vial IV.PUSH PRN (18:42)
--- NOTE | 2017-11-27 18:42 | P.HPIM ---
History of Present Illness Primary Care Physician: Yas Ku MD Chief Complaint: Seizures History of Present Illness: 27-year-old white female with a 10 year history of seizure disorder presents to the emergency room after having 4 consecutive grand mal seizures earlier this morning. Apparently patient has been on multiple anticonvulsants which she did not tolerate well and still was having breakthrough seizures. Her current neurologist Dr. Dixon has prescribed Briviact 100mg Po but patient was not tolerating the dosing and was titrating down to 50 mg during this week. At this time, patient complained of a frontal headache. She has not had any focalized weakness or numbness and slowly is more responsive in the emergency room. A lot of the history was gathered by speaking with her mother at bedside. Apparently, patient has been on multiple anticonvulsants which has not prevented breakthrough seizures. This includes Tegretol, Keppra, gabapentin , Lamictal, Topamax, Lyrica, Depakote. She has Ativan at home for breakthrough seizure and did take this after her multiple seizures earlier this morning. The emergency room physician had difficult time getting in touch with Dr. Dixon and a consult will be placed to the neurologist on service Dr. Dimas. - Diagnosis (1) Intractable seizure disorder Inpatient Certification: I certify that the inpatient services were ordered in accordance with Medicare regulations governing the order. This includes certification that hospital inpatient services are reasonable and necessary and in the case of services not specified as inpatient-only under 42 CFR 419.22(n), that they are appropriately provided as inpatient services in accordance to with the 2-midnight benchmark under 43 CFR 412.3(e) Estimated Total Length of Stay (Days): 2 Plans for Post Hospital Care: Home Review of Systems All other systems reviewed negative except as stated in HPI [facility] - History History Provided By: Patient - Medical / Surgical Hx Neg / Unobtainable Surgical History: No Previous Surgery - Medical History Medical History: Medical History (Last Reviewed 11/27/17 @ 18:39 by Rebecca Shipley MD) Seizure - Tobacco History Second Hand Smoke Exposure: No Tobacco Use In Past 30 Days: Yes Smoking Status: Former smoker Tobacco Type: Cigarettes - Alcohol History How Often Do You Have a Drink Containing Alcohol: Monthly or less - Substance Use History Substance History: No History of Abuse - Travel History Recent Travel in the [place] Within the Last 8 Weeks: No Recent Travel Out of the Country Within the Last 8 Weeks: No - Immunization History Tetanus Immunization: <5 Years Hx Influenza Vaccine This Season: No Medications and Allergies Active Medications: Active Medications Acetaminophen (Tylenol) 650 mg PO Q4H PRN PRN Reason: PAIN SCALE 1 TO 10 Valproate Sodium 500 mg/ (Sodium Chloride) 105 mls @ 105 mls/hr IV.SIG Q8HR GRACE Last Admin: 11/27/17 17:39 Dose: 105 mls/hr Levetiracetam (Keppra) 500 mg PO BID GRACE Lorazepam (Ativan Inj) 2 mg IV.PUSH Q10M PRN PRN Reason: SEE LABEL COMMENTS Sodium Chloride (Ns Flush) 2 ml IV.FLUSH PRN PRN PRN Reason: FLUSH AFTER USING IV ACCESS Last Admin: 11/27/17 14:47 Dose: 2 ml Allergies Allergy/AdvReac Type Severity Reaction Status Date / Time *MDRO Multi-Drug Resistant AdvReac Unknown unknown Uncoded 11/27/17 13:56 Organism Home Medications Medication Instructions Recorded Confirmed Type brivaracetam [Briviact] 50 mg PO DAILY 11/27/17 11/27/17 History Exam Vital signs: Vital Signs 11/27/17 13:50 11/27/17 13:52 11/27/17 14:21 Temperature 98.3 F Pulse Rate 134 H 105 H Respiratory Rate 22 18 Blood Pressure 147/80 H 138/69 Pulse Oximetry 96 99 99 11/27/17 16:00 Temperature Pulse Rate 86 Respiratory Rate 25 H Blood Pressure 141/65 H Pulse Oximetry 100 Intake & Output 11/26/17 11/27/17 11/27/17 18:59 06:59 18:59 Weight 65.771 kg Narrative: GENERAL: Well-nourished well-developed white female no acute distress SKIN: Warm and dry. HEAD: Atraumatic. Normocephalic. EYES: Pupils equal and round. No scleral icterus. No injection or drainage. ENT: No nasal bleeding or discharge. Mucous membranes pink and moist. NECK: Trachea midline. No JVD. CARDIOVASCULAR: Regular rate and rhythm. RESPIRATORY: No accessory muscle use. Clear to auscultation. Breath sounds equal bilaterally. GASTROINTESTINAL: Abdomen soft, non-tender, nondistended. Hepatic and splenic margins not palpable. MUSCULOSKELETAL: Extremities without clubbing, cyanosis, or edema. No obvious deformities. NEUROLOGICAL: Awake and alert to person place time situation. No obvious cranial nerve deficits. Motor grossly within normal limits. Five out of 5 muscle strength in the arms and legs. Normal speech. PSYCHIATRIC: Appropriate mood and affect; insight and judgment normal. Results - Labs CBC & Chem 7: 11/27/17 14:30 11/27/17 14:30 Labs: Short CBC 11/27/17 Range/Units 14:30 WBC 13.5 H (4.0-11.0) th/mm3 Hgb 13.3 (11.6-15.3) gm/dL Hct 39.6 (35.0-46.0) % Plt Count 239 (150-450) th/mm3 BMP 11/27/17 14:30 Sodium 142 Potassium 3.9 Chloride 110 H Carbon Dioxide 18.8 L BUN 18 Creatinine 1.46 H Calcium 9.4 Cardiac Enzymes 11/27/17 Range/Units 14:30 Total Creatine Kinase 127 (26-192) U/L CK-MB (CK-2) 0.5 (0.5-3.6) ng/mL - Imaging Impressions Head MRI 11/27/17 16:30 CONCLUSION: 1. Negative noncontrast brain MRI. Caprini VTE Risk Assessment Caprini VTE Risk Assessment: No/Low Risk (score <= 1) Caprini Risk Assessment Model: Point Value = 1 Point Value = 2 Point Value = 3 Point Value = 5 Age 41-60 Minor surgery BMI > 25 kg/m2 Swollen legs Varicose veins or History of unexplained or recurrent spontaneous Oral contraceptives or hormone replacement Sepsis (< 1 month) Serious lung disease, including pneumonia (< 1 month) Abnormal pulmonary function Acute myocardial infarction Congestive heart failure (< 1 month) History of inflammatory bowel disease Medical patient at bed rest Age 61-74 Arthroscopic surgery Major open surgery (> 45 min) Laparoscopic surgery (> 45 min) Malignancy Confined to bed (> 72 hours) Immobilizing plaster cast Central venous access Age >= 75 History of VTE Family history of VTE Factor V Leiden Prothrombin [id number] Lupus anticoagulant Anticardiolipin antibodies Elevated serum homocysteine Heparin-induced thrombocytopenia Other congenital or acquired thrombophilia Stroke (< 1 month) Elective arthroplasty Hip, pelvis, or leg fracture Acute spinal cord injury (< 1 month) Prophylaxis Regimen: Total Risk Factor Score Risk Level Prophylaxis Regimen 0-1 Low Early ambulation 2 Moderate Order ONE of the following: *Sequential Compression Device (SCD) *Heparin 5000 units SQ BID 3-4 Higher Order ONE of the following medications: *Heparin 5000 units SQ TID *Enoxaparin/Lovenox 40 mg SQ daily (WT < 150 kg, CrCl > 30 mL/min) *Enoxaparin/Lovenox 30 mg SQ daily (WT < 150 kg, CrCl > 10-29 mL/min) *Enoxaparin/Lovenox 30 mg SQ BID (WT < 150 kg, CrCl > 30 mL/min) AND/OR *Sequential Compression Device (SCD) 5 or more Highest Order ONE of the following medications: *Heparin 5000 units SQ TID (Preferred with Epidurals) *Enoxaparin/Lovenox 40 mg SQ daily (WT < 150 kg, CrCl > 30 mL/min) *Enoxaparin/Lovenox 30 mg SQ daily (WT < 150 kg, CrCl > 10-29 mL/min) *Enoxaparin/Lovenox 30 mg SQ BID (WT < 150 kg, CrCl > 30 mL/min) AND *Sequential Compression Device (SCD) Assessment and Plan - Assessment (1) Intractable seizure disorder Code(s): G40.919 - Epilepsy, unspecified, intractable, without status epilepticus Status: Acute - Plan 27-year-old white female with a history of seizure disorder presents to emergency room with breakthrough seizures despite being on anti-convulsants 1. Breakthrough seizures in the patient with seizure disorder historybolus of Keppra given in the emergency room along with dose of Vimpat, IV Depakote. MRI of the brain order and currently pending. We will consult neurology service for further recommendations. Placed on seizure precautions and Ativan as needed for breakthrough seizures. 2. DVT prophylaxis No mechanical or pharmaceutical VTE prophalaxis administered due to patient's low risk assessment of VTE. Encouraged ambulation.
[2017-11-27] MEDS: levETIRAcetam 500 MG Tablet PO SCH (20:38)
[2017-11-27] MEDS ORDERED: Morphine Sulfate Inj 2 MG/ML Vial IV.PUSH ONE (21:42)
[2017-11-28] MEDS ORDERED: Valproate Inj 500 MG in Sodium Chlor 0.9% Inj 100 ML IV.SIG SCH ×2 (01:00→09:00)
[2017-11-28 05:25] VITALS: RESP 16
[2017-11-28] MEDS ORDERED: Sod Chloride 0.9% Inj 1,000 ML IV.CONT SCH (08:15)
--- NOTE | 2017-11-28 08:15 | P.PN ---
Subjective Interval history: Follow-up for multiple seizure episodes, acute kidney injury. Patient is currently doing well. No acute concerns. Neurology evaluated patient and cleared for discharge. Physical Exam Vital signs: Vital Signs 11/27/17 13:50 11/27/17 13:52 11/27/17 14:21 Temperature 98.3 F Pulse Rate 134 H 105 H Respiratory Rate 22 18 Blood Pressure 147/80 H 138/69 Pulse Oximetry 96 99 99 11/27/17 16:00 11/27/17 20:00 11/28/17 00:00 Temperature 97.2 F L 98.2 F Pulse Rate 86 68 66 Respiratory Rate 25 H 20 18 Blood Pressure 141/65 H 141/74 H 132/60 Pulse Oximetry 100 68 L 98 11/28/17 04:00 Temperature 97.8 F Pulse Rate 62 Respiratory Rate 16 Blood Pressure 111/61 Pulse Oximetry 98 Intake & Output 11/27/17 11/28/17 11/28/17 18:59 06:59 18:59 Intake Total 2330 / 2330 Balance 2330 / 2330 Weight 65.771 kg 69.3 kg Intake: IV 2330 / 2330 Vimpat Inj 200 MG In NS Inj 100 120 / 120 ML @ 120 mls/hr IV.SIG ONCE ONE Rx#:[id number] NS Inj 1,000 ML @ Wide Open IV. 1999 / 1999 SIG BOLUS ONE Rx#:[id number] Depacon Inj 500 MG In NS Inj 210 / 210 100 ML @ 105 mls/hr IV.SIG Q8HR GRACE Rx#:[id number] Other: # Voids 2 Narrative: GENERAL: Alert, oriented 3, NAD. SKIN: Warm and dry. HEAD: Normocephalic. EYES: No scleral icterus. No injection or drainage. NECK: Supple, trachea midline. No JVD or lymphadenopathy. CARDIOVASCULAR: Regular rate and rhythm without murmurs, gallops, or rubs. RESPIRATORY: Breath sounds equal bilaterally. No accessory muscle use. GASTROINTESTINAL: Abdomen soft, non-tender, nondistended. MUSCULOSKELETAL: No cyanosis, or edema. BACK: Nontender without obvious deformity. No CVA tenderness. Results - Labs CBC & Chem 7: 11/27/17 14:30 11/27/17 14:30 Laboratory Results - last 24 hr 07/21/18 07/21/18 07/21/18 14:30 14:30 14:30 WBC 13.5 H RBC 4.28 Hgb 13.3 Hct 39.6 MCV 92.5 MCH 31.1 MCHC 33.6 RDW 12.9 Plt Count 239 MPV 8.7 Neut % (Auto) 92.4 H Lymph % (Auto) 4.2 L [place] % (Auto) 3.3 Eos % (Auto) 0.0 Baso % (Auto) 0.1 Neut # (Auto) 12.4 H Lymph # (Auto) 0.6 L [place] # (Auto) 0.4 Eos # (Auto) 0.0 Baso # (Auto) 0.0 WBC Differential . Differential Comment Auto diff final Sodium 142 Potassium 3.9 Chloride 110 H Carbon Dioxide 18.8 L Anion Gap 13 BUN 18 Creatinine 1.46 H Estimated GFR 42 L Random Glucose 122 H Calcium 9.4 Magnesium 2.6 H Total Creatine Kinase 127 CK-MB (CK-2) 0.5 - Imaging Impressions Head MRI 11/27/17 16:30 CONCLUSION: 1. Negative noncontrast brain MRI. Assessment and Plan - Assessment (1) Intractable seizure disorder Code(s): G40.919 - Epilepsy, unspecified, intractable, without status epilepticus Status: Acute (2) ELIZABETH (acute kidney injury) Code(s): N17.9 - Acute kidney failure, unspecified Status: Acute - Plan This is a 27-year-old female with a history of seizure disorder who presented to the emergency department on 11/27/2017 due to seizure activities. Her primary neurologist is Dr. Dixon. She has been on multiple seizure medications. Recurrent seizure episodes -MRI head was negative for any acute findings. -Patient is currently on Keppra 500 mg p.o. twice daily, valproic acid 500 mg IV every 8 hours Ativan as needed -Neurology evaluated patient and recommended continuing home medication Briviact and continue Keppra as well. -Neurology also recommended patient to discuss with her outpatient neurologist regarding other medications. -No driving climbing steps swimming or operating any dangerous or heavy machinery for at least 6 months of being seizure spell free Acute kidney injury - Creatinine 1.46, baseline below 0.66. - Patient received some fluid in the ED. Will start NS @ 125cc/hour for one day. - Will repeat BMP this AM. If it is improved, patient can be discharged. Full code. Ambulation. Discharge patient to home Condition on discharge: Improved Regular Diet as tolerated Ad Ann Marie activity Rx written: Flexeril 10 mg 3 times daily as needed Keppra 500 mg p.o. twice daily Follow-up with primary care physician within 1-2 weeks and neurology within 1 week
[2017-11-28] MEDS: levETIRAcetam 500 MG Tablet PO SCH (09:52)
--- NOTE | 2017-11-28 10:04 | P.CONNEU ---
History of Present Illness Service: Neurology Primary Care Provider: Yas Ku MD Family Provider: Yas Ku MD Chief Complaint: Seizures History of Present Illness: 27-year-old white female with a history of intractable spells, seizure. Apparently patient has been on multiple anticonvulsants which she did not tolerate well and still was having breakthrough seizures. Her current neurologist Dr. Dixon has prescribed Briviact 100mg Po but patient was not tolerating the dosing and was titrating down to 50 mg during this week. Mother states she has a seizure every 5-7 days. She has been to [facility] twice. Unclear whether they actually found any seizures or whether she is having pseudo-epileptic events This includes Tegretol, Keppra, gabapentin, Lamictal, Topamax, Lyrica, Depakote. She has Ativan at home for breakthrough seizure and did take this after her multiple seizures earlier this morning. No seizures overnight. Patient is on disability. She is asking if she could have morphine for pain I told her she would need to ask the hospitalist Review of Systems All other systems reviewed negative except as stated in HPI [facility] - History History Provided By: Patient - Medical History Medical History: Medical History (Last Reviewed 11/27/17 @ 18:39 by Rebecca Shipley MD) Seizure - Tobacco History Second Hand Smoke Exposure: No Tobacco Use In Past 30 Days: Yes Smoking Status: Former smoker Tobacco Type: Cigarettes - Alcohol History How Often Do You Have a Drink Containing Alcohol: Monthly or less - Substance Use History Substance History: No History of Abuse - Travel History Recent Travel in the [place] Within the Last 8 Weeks: No Recent Travel Out of the Country Within the Last 8 Weeks: No - Immunization History Tetanus Immunization: <5 Years Hx Influenza Vaccine This Season: No Medications and Allergies Active Medications: Active Medications Acetaminophen (Tylenol) 650 mg PO Q4H PRN PRN Reason: PAIN SCALE 1 TO 5 Hydrocodone Bitart/Acetaminophen ([place] 5/325) 1 tab PO Q4H PRN PRN Reason: PAIN SCALE 6 TO 10 Last Admin: 11/28/17 04:23 Dose: 1 tab Valproate Sodium 500 mg/ (Sodium Chloride) 105 mls @ 105 mls/hr IV.SIG Q8H GRACE Last Admin: 11/28/17 09:51 Dose: 105 mls/hr Sodium Chloride (Ns Inj) 1,000 mls @ 125 mls/hr IV.CONT .Q8H [facility] Stop: 11/29/17 08:14 Last Admin: 11/28/17 09:51 Dose: 125 mls/hr Levetiracetam (Keppra) 500 mg PO BID [facility] Last Admin: 11/28/17 09:52 Dose: Not Given Lorazepam (Ativan Inj) 2 mg IV.PUSH Q10M PRN PRN Reason: SEE LABEL COMMENTS Naloxone HCl (Narcan Inj) 0.4 mg IV.PUSH UNSCH PRN PRN Reason: SEE LABEL COMMENTS Sodium Chloride (Ns Flush) 2 ml IV.FLUSH PRN PRN PRN Reason: FLUSH AFTER USING IV ACCESS Last Admin: 11/27/17 14:47 Dose: 2 ml Allergies Allergy/AdvReac Type Severity Reaction Status Date / Time *MDRO Multi-Drug Resistant AdvReac Unknown unknown Uncoded 11/27/17 13:56 Organism Home Medications Medication Instructions Recorded Confirmed Type brivaracetam [Briviact] 50 mg PO DAILY 11/27/17 11/27/17 History Exam Vital signs: Vital Signs 11/27/17 13:50 11/27/17 13:52 11/27/17 14:21 Temperature 98.3 F Pulse Rate 134 H 105 H Respiratory Rate 22 18 Blood Pressure 147/80 H 138/69 Pulse Oximetry 96 99 99 11/27/17 16:00 11/27/17 20:00 11/28/17 00:00 Temperature 97.2 F L 98.2 F Pulse Rate 86 68 66 Respiratory Rate 25 H 20 18 Blood Pressure 141/65 H 141/74 H 132/60 Pulse Oximetry 100 68 L 98 11/28/17 04:00 11/28/17 08:00 Temperature 97.8 F 97.9 F Pulse Rate 62 67 Respiratory Rate 16 16 Blood Pressure 111/61 114/63 Pulse Oximetry 98 98 Intake & Output 11/27/17 11/28/17 11/28/17 18:59 06:59 18:59 Intake Total 2330 / 2330 Balance 2330 / 2330 Weight 65.771 kg 69.3 kg Intake: IV 233 / 2330 Vimpat Inj 200 MG In NS Inj 100 120 / 120 ML @ 120 mls/hr IV.SIG ONCE ONE Rx#:[id number] NS Inj 1,000 ML @ Wide Open IV. 1999 SIG BOLUS ONE Rx#:[id number] Depacon Inj 500 MG In NS Inj 210 / 210 100 ML @ 105 mls/hr IV.SIG Q8HR GRACE Rx#:[id number] Other: # Voids 2 Narrative: Awake alert oriented 3 no acute distress flat affect no aphasia extraocular was intact no facial asymmetry moving all extremities to gravity - Constitutional no acute distress - Routine HEENT Exam Head: Present: normocephalic, atraumatic Eye: Present: EOMI, PERRL - Routine Neck Exam Present: supple Results - Labs CBC & Chem 7: 11/27/17 14:30 11/27/17 14:30 Labs: Laboratory Results - last 24 hr 11/27/17 11/27/17 11/27/17 14:30 14:30 14:30 WBC 13.5 H RBC 4.28 Hgb 13.3 Hct 39.6 MCV 92.5 MCH 31.1 MCHC 33.6 RDW 12.9 Plt Count 239 MPV 8.7 Neut % (Auto) 92.4 H Lymph % (Auto) 4.2 L [place] % (Auto) 3.3 Eos % (Auto) 0.0 Baso % (Auto) 0.1 Neut # (Auto) 12.4 H Lymph # (Auto) 0.6 L [place] # (Auto) 0.4 Eos # (Auto) 0.0 Baso # (Auto) 0.0 WBC Differential . Differential Comment Auto diff final Sodium 142 Potassium 3.9 Chloride 110 H Carbon Dioxide 18.8 L Anion Gap 13 BUN 18 Creatinine 1.46 H Estimated GFR 42 L Random Glucose 122 H Calcium 9.4 Magnesium 2.6 H Total Creatine Kinase 127 CK-MB (CK-2) 0.5 - Imaging Impressions Head MRI 11/27/17 16:30 CONCLUSION: 1. Negative noncontrast brain MRI. Review/Management - Diagnosis (1) Intractable seizure disorder Code(s): G40.919 - Epilepsy, unspecified, intractable, without status epilepticus Status: Acute Current Visit: Yes (2) Grand mal seizure Code(s): G40.409 - Other generalized epilepsy and epileptic syndromes, not intractable, without status epilepticus Status: Acute Current Visit: Yes (3) ELIZABETH (acute kidney injury) Code(s): N17.9 - Acute kidney failure, unspecified Status: Acute Current Visit: Yes - Review/Management Plan: Intractable spells/seizure MRI brain scan normal EEG pending Recommendations Can be discharged from neurologic standpoint followed up with her outpatient neurologist tomorrow She may need to restart her brivact at home continue her on Depakote 500 mg twice daily until seen by her outpatient neurologist Names of new or seizure medications including Fycompa, Banzel, Onfi were given to the patient to review with her neurologist No driving climbing steps swimming or operating any dangerous or heavy machinery for at least 6 months of being seizure spell free
[2017-11-28 12:39] VITALS: BP 105/50; PULSE 62; TEMP 98.5; O2SAT 97
[2017-11-28 12:45] LABS: Calcium 8.2 mg/dL (8.5-10.1); Carbon Dioxide 25.5 meq/L (21.0-32.0); Potassium 3.5 meq/L (3.5-5.1)
== END 2017-11-28 15:05 | disposition home or self-care (01) ==
LOC: NEPD 13:40 → NEDA 17:29 → N05 18:48
PROVIDERS: ADMIT Hospitalist; ATTEND Hospitalist
DX: N17.9 Acute kidney failure, unspecified; G40.419 Other generalized epilepsy and epileptic syndromes, intractable, without status epilepticus